=== PATIENT | male | born 1945 | race Caucasian/White ===

== ENCOUNTER 2018-12-13 03:46 | Emergency (ER) | payer MEDICARE | END 2018-12-13 04:56 | disposition home or self-care (01) | LOC: ERS 03:46 | DX: T65.891A Toxic effect of other specified substances, accidental (unintentional), initial encounter (principal); E78.5 Hyperlipidemia, unspecified; I10 Essential (primary) hypertension; Z79.899 Other long term (current) drug therapy | CPT/HCPCS: 99283 ==